=== PATIENT | male | born 1990 | race Caucasian/White ===

== ENCOUNTER 2018-02-16 16:48 | Emergency (ER) | payer BC, SELFPAY ==
[2018-02-16 16:49] VITALS: BP 128/75; PULSE 98; RESP 18; TEMP 37.1; O2SAT 95; BMI 36.1
[2018-02-16] MEDS: Ketorolac 30 MG/ML Syringe IV (18:32)
[2018-02-16] MEDS: 0.9% Normal Saline 1,000 ML 1000 ML IV (18:32)
[2018-02-16 19:01] LABS: Absolute Lymphocyte Count 1.61 X10^3/ul (0.83-4.51); Absolute Neutrophil Count 2.8 X10^3/uL (2.0-7.7); Basophil# 0.02 X10^3/uL; Basophil% 0.4 % (0-1); Eosinophil# 0.14 X10^3/uL; Eosinophils% 2.7 % (0-5); Hemoglobin 15.1 g/dl (13.0-16.5); Lymphocyte # 1.61 X10^3/ul (4.0); Lymphocyte % 30.9 % (19-41); Mean Corp Hgb Conc 33.6 g/gl (32-36); Mean Corpuscular Hgb 28.7 pg (27.0-32.0); Mean Corpuscular Volume 85.4 fL (80-94); Mean Platelet Vol. 10.1 fl (6.2-12.0); Monocyte# 0.63 X10^3/uL; Monocyte% 12.1 % (0-10); Neutrophil # 2.81 X10^3/uL (2.7-7.7); Neutrophil % 53.9 % (47-70); POSITIVE COUNT NO; POSITIVE DIFFERENTIAL NO; POSITIVE MORPHOLOGY NO; Platelet Count 203 K/mm3 (150-450); RBC Distribution Width SD 40.6 fl (35.1-43.9); Red Blood Count 5.27 M/mm3 (4.6-6.2); White Blood Count 5.2 K/mm3 (4.4-11.0)
[2018-02-16 19:11] LABS: Anion Gap 9 (5-15); BUN 14 mg/dL (7-18); BUN/Creat Ratio 16.4 RATIO (10-20); Chloride 104 mmol/L (98-107); Creatinine, Serum 0.86 mg/dL (0.70-1.30); EST Glomerular Filtration Rate 114 mL/min (>60); Est Glom Filt Rate - Afr Amer 138 mL/min (>60); Estimated Creatinine Clearance 150.01 ml/min; Glucose 87 mg/dL (74-106); Potassium 3.8 mmol/L (3.5-5.1); Sodium Level 139 mmol/L (136-145)
--- NOTE | 2018-02-16 19:15 | ED.DCSUM_ITS ---
- ER Visit Summary Date of Service: 02/16/18 Chief Complaint: Sore throat History of Present Illness: The patient is a [address] Eubanks. He reports he is a sore throat that began 3 days ago. Says sharp pain is 9 out of 10 with swelling 6 out of 10 at rest. Reports he is taken ibuprofen and cough drops with some relief. Reports that it feels like he is choking when he swallows. [facility] prior to arrival and had a strep and mono tests that were negative. Patient does report these had a fever of 101.8?. No cough. Physical Examination: Vitals: Stable. Afebrile. General: Well-nourished and well-developed. Head: Normocephalic atraumatic. HEENT: Posterior oropharyngeal erythema. No tonsillar enlargement or exudate. No evidence of peritonsillar abscess. He does have significant pain with movement of his trachea. Neck: Supple, no lymphadenopathy. No JVD. Nontender. Cardiovascular: Regular rate and rhythm. No murmurs. Respiratory: No respiratory distress. Clear to auscultation bilaterally. Abdominal: Soft, nontender, nondistended, normal bowel sounds. No guarding, rebound, or peritoneal signs. Back: Nontender. Extremities: Nontender, no edema. Skin: Normal color, no rash. Neurologic: Alert and oriented ?3. Cranial nerves II through XII are intact. Normal strength and sensation. Psych: Normal affect. Test Results: CBC is remarkable for monocytes of 12. Chem-[address] soft tissue neck shows no evidence of epiglottitis. Emergency Department Course and Treatment: Patient was treated with Toradol and dexamethasone IV. He was given amoxicillin p.o. Treatment Plan: I discussed the patient that they will get the results of his throat culture in 5 days. If that is negative then he can stop the amoxicillin. Follow-up with his primary care physician in 3-5 days if not improving. Return to the emergency department for any worsening symptoms. Disposition: To home in improved and stable condition. Impression: [] This note was generated with [employer] software. It may contain incorrect words, spelling, and punctuation that were not noted in review of the chart prior to signing ED Disposition - Plan for ED Patient: Disposition: Home or Assisted Living Chief Complaint: Sore Throat Instructions: ED Pharyngitis Viral Report Pending Prescriptions: Hydrocodone Bitart/Apap 5-325 [[place] 5MG-325MG] 1 tablet PO Q4H PRN PRN 2 Days # 10 tablet PRN Reason: Pain Amoxicillin 500 mg PO TID #30 tablet Referrals: Shalom Eubanks MD [Primary Care Provider] - 3-5 Days if not improving
[2018-02-16] MEDS: AMOXICILLIN 500 MG CAPSULE PO (19:30)
[2018-02-16 19:31] VITALS: BP 139/77; PULSE 85; RESP 16; O2SAT 96
== END 2018-02-16 19:32 | disposition home or self-care (01) ==
LOC: ED 18:06
PROVIDERS: Emergency Provider Emergency Medicine; Family Provider Family Medicine; PCP Family Medicine
DX: J02.9 Acute pharyngitis, unspecified (principal)
CPT/HCPCS: 70491; 80048; 85025; 87081; 96361; 96374; 96375; 99284; J7030; Q9967

== ENCOUNTER → 2018-02-16 17:37 | Outpatient (CLI) | payer BC, SELFPAY | PROVIDERS: Visit Provider Physician Assistant | DX: J02.9 Acute pharyngitis, unspecified (principal) | CPT/HCPCS: 87081 ==

== ENCOUNTER 2018-04-27 23:54 | Emergency (ER) | payer OTHER, SELFPAY ==
[2018-04-27 23:54] VITALS: BP 161/89; PULSE 102; RESP 16; TEMP 37.7; O2SAT 99; BMI 39.6
--- NOTE | 2018-04-28 00:18 | ED.RN ---
DENTAL LABORATORY ASSISTANT WILBERT STATED SHE DID NOT WANT A DRUG SCREEN COMPLETED FOR THIS INCIDENT
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
[2018-04-28] MEDS: Acetaminophen 500 MG Tablet 1000 MG PO (00:48)
[2018-04-28 00:49] VITALS: PULSE 101; RESP 18; O2SAT 97
== END 2018-04-28 00:51 | disposition home or self-care (01) ==
LOC: ED 04-28 00:40
PROVIDERS: Emergency Provider Emergency Medicine; Family Provider Family Medicine; PCP Family Medicine
DX: S06.0X0A Concussion without loss of consciousness, initial encounter (principal); Y04.2XXA Assault by strike against or bumped into by another person, initial encounter; Y93.9 Activity, unspecified; Y92.119 Unspecified place in children's home and orphanage as the place of occurrence of the external cause; Y99.0 Civilian activity done for income or pay
CPT/HCPCS: 99283

== ENCOUNTER → 2019-12-20 | Outpatient (CLI) | payer MEDICAID, SELFPAY ==
--- NOTE | 2019-12-20 14:15 | BRONCHALL_ITS ---
Bronchoprovocation Challenge - Bronchoprovocation Challenge Bronchoprovocation Challenge: BRONCHOPROVOCATION STUDY INTERPRETATION Brief HPI: Patient is a 29 year old male, currently under the care of Dr. Eubanks, who presents to [facility] for a bronchoprovocation study secondary to diagnosis of dyspnea. Respiratory therapist reports good effort and reproducible results. Interpretation: Initial spirometry showed no large airways obstructive ventilatory defect. The patient was then given increasingly concentrated doses of methacholine in a stepwise fashion, using a modified ATS protocol. The patient had a significant reduction in FEV1 by 29% and a calculated PD20 of 0.27. Impression: Positive bronchoprovocation study. This is consistent with the diagnosis of asthma.
== END | disposition home or self-care (01) ==
LOC: PSN 08:09
PROVIDERS: PCP Family Medicine; Referring Provider Family Medicine; Visit Provider Family Medicine
DX: R06.2 Wheezing (principal); R06.02 Shortness of breath
CPT/HCPCS: 94070; 95070; J3490; J7674

== ENCOUNTER → 2022-12-20 | Outpatient (CLI) | payer OTHER, SELFPAY ==
[2022-12-20 17:34] LABS: D-Dimer Quantitative (DVT/PE) 0.32 FEU/ug/m (0.27-0.49)
== END | disposition home or self-care (01) ==
PROVIDERS: PCP Family Medicine; Referring Provider Family Medicine; Visit Provider Family Medicine
DX: R07.9 Chest pain, unspecified (principal)
CPT/HCPCS: 85379